=== PATIENT | female | born 1985 | race Caucasian/White ===

== ENCOUNTER → 2018-07-03 18:13 | Outpatient (REF) | payer OTHER, SELFPAY ==
--- NOTE | 2018-07-03 14:15 | PAPFT_PTH ---
PATIENT: Inocencia Stephenson LOC: [facility] U#:[id number] AGE/SX: 40/F ROOM: RE07/03/[address]: Nadeen Bower APRN : 1985 BED: DIS: SPEC #: [id number] RECD: 07/03/18 18:14 STATUS: SHYANNE RENed #: [id number] JC: 07/03/18 14:[address]: Nadeen Bower DEPT: [facility] Cytology RECD BY: Iman Umana Tissues: 1 - CX/ENDOCX FOR PAP SMEARS Procedures: PAP THIN PREP/[facility] Screening HPV DNA PROBE Comments: [id number]
== END ==
LOC: LBN 18:13
PROVIDERS: PCP Nurse Practitioner; Visit Provider Nurse Practitioner
DX: Z12.4 Encounter for screening for malignant neoplasm of cervix (principal); Z11.51 Encounter for screening for human papillomavirus (HPV)
CPT/HCPCS: 88142; 87624

== ENCOUNTER 2018-10-02 16:00 | Outpatient (CLI) | payer OTHER, SELFPAY ==
--- NOTE | 2018-10-02 16:07 | DI.RAD_ITS ---
SYMPTOM/DIAGNOSIS: FEVER, R50.9 PA AND LATERAL CHEST: Comparison is made with 11/19/07. Heart size and pulmonary vasculature are within normal limits. There is an infiltrate seen in the right lower lobe suspicious for pneumonia. The lungs are otherwise clear. No effusions or pneumothoraces are identified. The bones are intact. IMPRESSION: Right lower lobe pneumonia.
[2018-10-02 16:30] LABS: HCT 35.9 % (36.0-46.0); HGB 12.1 g/dL (12.0-15.5); Mean Corp. HGB Concentration 33.7 g/dL (32.0-36.0); Mean Corpuscular Hemoglobin 31.4 pg (27.0-33.0); Mean Corpuscular Volume 93.2 fL (80-95); Mean Platelet Volume 10.5 fL (8.0-11.0); Platelet Count 216 x1000/uL (130-400); RBC 3.85 m/cumm (4.00-5.20); RBC Distribution Width 12.4 % (11.7-14.6); White Blood Cell Count 10.59 k/cumm (4.4-10.8)
== END 2018-10-02 16:20 ==
PROVIDERS: PCP Nurse Practitioner; Visit Provider Nurse Practitioner
DX: R50.9 Fever, unspecified (principal); J18.9 Pneumonia, unspecified organism
CPT/HCPCS: 36415; 85027; 71046

== ENCOUNTER 2019-07-23 20:11 | Outpatient (REF) | payer OTHER, SELFPAY | END 2019-07-23 20:31 | LOC: LBN 20:11 | PROVIDERS: PCP Nurse Practitioner; Visit Provider Nurse Practitioner | DX: J02.9 Acute pharyngitis, unspecified (principal) | CPT/HCPCS: 87077; 87070 ==

== ENCOUNTER 2020-04-26 08:11 | Outpatient (CLI) | payer OTHER, SELFPAY ==
[2020-04-27 11:29] LABS: COVID-19 RT-PCR UVMMC Result Negative (Negative)
== END 2020-04-26 08:31 ==
PROVIDERS: PCP Nurse Practitioner; Visit Provider Nurse Practitioner
DX: J02.9 Acute pharyngitis, unspecified (principal); R51 Headache
CPT/HCPCS: U0003

== ENCOUNTER 2020-08-09 21:25 | Outpatient (REF) | payer OTHER, SELFPAY | END 2020-08-09 21:45 | LOC: LBN 21:25 | PROVIDERS: PCP Nurse Practitioner; Visit Provider Physician Assistant | DX: J02.9 Acute pharyngitis, unspecified (principal) | CPT/HCPCS: 87070 ==

== ENCOUNTER 2020-08-12 08:05 | Outpatient (CLI) | payer OTHER, SELFPAY ==
[2020-08-15 15:11] LABS: Patient Race White; SARS-CoV-2 RNA Undetected (Undetected); SARS-CoV-2 Specimen Source Nasopharynx
== END 2020-08-12 08:25 ==
PROVIDERS: PCP Nurse Practitioner; Visit Provider Physician Assistant
DX: J02.9 Acute pharyngitis, unspecified (principal)
CPT/HCPCS: U0003

== ENCOUNTER 2020-08-23 15:54 | Outpatient (REF) | payer OTHER, SELFPAY ==
[2020-08-25 14:16] LABS: Chlamydia Result Negative (Negative); GC Result Negative (Negative)
== END 2020-08-23 16:14 ==
LOC: LBO 15:54
PROVIDERS: PCP Nurse Practitioner; Visit Provider Internal Medicine
DX: N76.0 Acute vaginitis (principal); Z11.3 Encounter for screening for infections with a predominantly sexual mode of transmission
CPT/HCPCS: 87491; 87591; 87480; 87510; 87660

== ENCOUNTER 2022-11-02 01:10 | Outpatient (CLI) | payer OTHER, SELFPAY ==
[2022-11-02 08:23] LABS: Hemoglobin A1C 5.2 % (<5.7)
[2022-11-02 08:37] LABS: ALT 29 U/L (14-59); AST 14 U/L (15-37); Albumin 4.3 g/dL (3.4-5.0); Alkaline Phosphatase 78 U/L (46-116); Anion Gap 8.5 mmol/L (3-11); BUN 10 mg/dL (7-18); Bilirubin, Total 0.4 mg/dL (0.2-1.0); CO2 27.5 mmol/L (21.0-32.0); CREATININE 0.7 mg/dL (0.55-1.02); Calcium 9.4 mg/dL (8.5-10.1); Calculated LDL 49 mg/dL (<100); Chloride 102 mmol/L (98-107); Cholesterol 114 mg/dL (<200); Estimated GFR 113.46 (mL/min/1.73m2); Glucose 106 mg/dL (74-106); HDL Cholesterol 45 mg/dL (40-60); Potassium 3.6 mmol/L (3.5-5.1); Sodium 138 mmol/L (136-145); TSH (W/Ref FT4) 1.96 uIU/mL (0.36-3.74); Total Protein 8.1 g/dL (6.4-8.2); Triglyceride 102 mg/dL (<150)
== END 2022-11-02 01:11 | disposition home or self-care (01) ==
LOC: LBO 01:10
PROVIDERS: PCP Nurse Practitioner; Visit Provider Nurse Practitioner
DX: F41.8 Other specified anxiety disorders (principal); E66.8 Other obesity; Z13.1 Encounter for screening for diabetes mellitus; Z13.220 Encounter for screening for lipoid disorders
CPT/HCPCS: 36415; 80053; 80061; 83036; 84443

== ENCOUNTER 2024-07-29 15:57 | Outpatient (REF) | payer OTHER, SELFPAY | END 2024-07-29 15:58 | disposition home or self-care (01) | LOC: LBN 15:57 | PROVIDERS: PCP Nurse Practitioner; Visit Provider Physician Assistant Medical | DX: J02.9 Acute pharyngitis, unspecified (principal) | CPT/HCPCS: 87070 ==

== ENCOUNTER 2024-08-05 14:03 | Outpatient (CLI) | payer OTHER, SELFPAY ==
--- NOTE | 2024-08-05 14:26 | DI.RAD_ITS ---
Exam(s) XR CHEST 2V PA LATERAL EXAM: XR CHEST 2V PA LATERAL CLINICAL HISTORY: Cough, R05.9. TECHNIQUE: 2D digital imaging was performed. COMPARISON: Prior chest x-ray September 2018 FINDINGS: 2 views: Heart size is normal. The mediastinum is not widened. Lungs are clear. No infiltrates nor pleural effusions. IMPRESSION: No acute pulmonary findings. I note that this patient had prior pneumonia in the right lung on chest x-ray of 10/02/2018. DATA REPOSITORY: RADIATION DOSE DELIVERED:
== END 2024-08-05 14:23 ==
LOC: DI 14:03
PROVIDERS: PCP Nurse Practitioner; Visit Provider Physician Assistant Medical
DX: R05.9 Cough, unspecified (principal)
CPT/HCPCS: 71046